=== PATIENT | female | born 1950 | race Caucasian/White ===

== ENCOUNTER 2017-04-24 13:56 | Observation (INO) | payer OTHER ==
[~2017-04-24] VITALS: Ht 157.5 cm; Wt 124.3 kg
[~2017-04-24 13:56] MED LIST: AMLODIPINE BESY10 MG PO; ASPIR 8181 MG PO; Aspirin PO; Furosemide PO; HYDROCHLOROTHIA25 MG PO; LABETALOL HCL200 MG PO; LISINOPRIL10 MG PO; PEPCID20 MG PO
[2017-04-24 14:25] LABS: BASOPHILS # (AUTO) 0.1 (0.0-0.1); BASOPHILS % 0.7 % (0.0-1.0); EOSINOPHILS # (AUTO) 0.2 (0.0-0.4); EOSINOPHILS % 2.2 % (0.0-6.0); HEMATOCRIT 35.8 % (34.2-44.1); HEMOGLOBIN 11.8 g/dL (12.0-16.0); LYMPHOCYTES # (AUTO) 3.1 (1.0-3.2); LYMPHOCYTES % 42.9 % (18.0-39.1); MEAN CORPUSCULAR HEMOGLOBIN 29.1 pg (28-32); MEAN CORPUSCULAR VOLUME 88.4 fL (81-99); MONOCYTES # (AUTO) 0.5 (0.2-0.8); MONOCYTES % 6.4 % (4.4-11.3); NEUTROPHILS # (AUTO) 3.4 (2.1-6.9); NEUTROPHILS % 47.5 % (38.7-80.0); PLATELET COUNT 343 x10e3/uL (140-360); RED BLOOD COUNT 4.05 x10e6/uL (3.6-5.1); RED CELL DISTRIBUTION WIDTH 13.8 % (11.7-14.4)
[2017-04-24 14:35] LABS: INR 0.99; PROTHROMBIN TIME 12.3 seconds (11.9-14.5)
[2017-04-24 14:36] LABS: PARTIAL THROMBOPLASTIN TIME 29.1 seconds (23.8-35.5)
[2017-04-24 14:43] LABS: ALANINE AMINOTRANSFERASE 10 IU/L (0-55); ALBUMIN 3.7 g/dL (3.5-5.0); ALBUMIN/GLOBULIN RATIO 0.9 (0.8-2.0); ALKALINE PHOSPHATASE 60 IU/L (40-150); ANION GAP 18.2 mmol/L (8-16); BLOOD UREA NITROGEN 21 mg/dL (7-26); BUN/CREATININE RATIO 26 (6-25); CALCIUM 9.7 mg/dL (8.4-10.2); CARBON DIOXIDE 25 mmol/L (22-29); CHLORIDE 104 mmol/L (98-107); CREATINE KINASE 35 IU/L (29-168); CREATININE, SERUM 0.81 mg/dL (0.57-1.11); EST GLOMERULAR FILTRATION RATE > 60 ML/MIN (60-); GLUCOSE 155 mg/dL (74-118); POTASSIUM 4.2 mmol/L (3.5-5.1); SODIUM 143 mmol/L (136-145)
--- NOTE | 2017-04-24 14:53 | Diagnostic Imaging Report ---
EXAMINATION: CHEST SINGLE (PORTABLE) INDICATION: \S\CP \S.br\ COMPARISON: 03/18/2015 FINDINGS: AP view TUBES and LINES: None. LUNGS: Limited by body habitus. Patient's chin obscures lung apices. Pulmonary vascular congestion and mild interstitial edema. PLEURA: No significant pleural effusion or pneumothorax. HEART AND MEDIASTINUM: The cardiomediastinal silhouette is enlarged. BONES AND SOFT TISSUES: No acute osseous lesion. Soft tissues are unremarkable. UPPER ABDOMEN: No free air under the diaphragm. IMPRESSION: Enlarged cardiomediastinal silhouette, pulmonary vascular congestion, and mild interstitial edema, unchanged from prior exam. Signed by: Dr. Chris Rodriguez MD on 04/24/2017 2:50 PM
[2017-04-24] MEDS ORDERED: ONDANSETRON HCL INJ 2 MG/ML VIAL IV PRN (15:30)
[2017-04-24] MEDS ORDERED: MORPHINE SULFATE 2 MG/ML SYR IV PRN (15:30)
[2017-04-24] MEDS ORDERED: NITROGLYCERIN 0.4 MG SUBL SL PRN (15:30)
[2017-04-24] MEDS ORDERED: FAMOTIDINE 20 MG TAB PO SCH (15:30)
[2017-04-24] MEDS ORDERED: SODIUM CHLORIDE FLUSH 10 ML SYR INJ PRN (15:30)
[2017-04-24] MEDS: FUROSEMIDE INJ 10 MG/ML 2 ML VIAL IV SCH (15:37)
[2017-04-24] MEDS: NITROGLYCERIN 2% OINT 1 GM PKT TOP SCH ×2 (15:37→21:38)
--- OUTSIDE RECORDS SUMMARY | 2017-04-24 18:36 | XMS REPORT ---
Author Author [facility] Address Unknown Phone Unavailable Care Team Providers Care Stencil Printer Name Role Phone SULAIMAN BENAVIDES Unavailable Unavailable Problems This patient has no known problems. Allergies, Adverse Reactions, Alerts This patient has no known allergies or adverse reactions. Medications This patient has no known medications. Results Test Description Test Time Test Comments Text Results Atomic Results Result Comments CHEST SINGLE (PORTABLE) [place] [address] Patient Name: ELADIO ROGERS MR #: [id number] : 1950 Age/Sex: 67/F Req #: [id number] Adm Physician: Ordered by: SULAIMAN BENAVIDES MD Report #: [id number] Location: ER Room/Bed: Procedure: [id number] DX/CHEST SINGLE (PORTABLE) Exam Date: 04/24/17 Exam Time: 1425 REPORT STATUS: Signed EXAMINATION: CHEST SINGLE (PORTABLE) INDICATION: COMPARISON: 2015 FINDINGS: AP view TUBES and LINES: None. LUNGS: Limited by body habitus. Patient's chin obscures lung apices. Pulmonary vascular congestion and mild interstitial edema. PLEURA: No significant pleural effusion or pneumothorax. HEART AND MEDIASTINUM: The cardiomediastinal silhouette is enlarged. BONES AND SOFT TISSUES: No acute osseous lesion. Soft tissues are unremarkable. UPPER ABDOMEN: No free air under the diaphragm. IMPRESSION: Enlarged cardiomediastinal silhouette, pulmonary vascular congestion, and mild interstitial edema, unchanged from prior exam. Signed by: Dr. Chris Jones MD on 04/24/2017 2:50 PM Dictated By: CHRIS JONES MD 48 Transcribed By: MARTY on 04/24/171449 COPY TO: SULAIMAN BENAVIDES MD
[2017-04-24 20:00] VITALS: BP 164/74
[2017-04-24 20:09] VITALS: BP 188/89
[2017-04-24 20:12] VITALS: BP 164/77
[2017-04-24 20:21] VITALS: BP 164/77
[2017-04-24] MEDS ORDERED: HYDRALAZINE HCL 20 MG/ML VIAL IV PRN (20:30)
[2017-04-24] MEDS ORDERED: LABETALOL HCL 200 MG TAB PO SCH (21:00)
[2017-04-24] MEDS ORDERED: LISINOPRIL 10 MG TAB PO SCH (21:00)
[2017-04-24] MEDS ORDERED: ASPIRIN 81 MG PO SCH (21:00)
[2017-04-25 00:16] VITALS: BP 108/51
[2017-04-25 00:46] LABS: CREATINE KINASE 40 IU/L (29-168)
[2017-04-25 04:00] VITALS: BP 153/67
[2017-04-25] MEDS: NITROGLYCERIN 2% OINT 1 GM PKT TOP SCH (04:30)
[2017-04-25 06:11] LABS: BASOPHILS # (AUTO) 0.1 (0.0-0.1); BASOPHILS % 0.7 % (0.0-1.0); EOSINOPHILS # (AUTO) 0.2 (0.0-0.4); EOSINOPHILS % 2.1 % (0.0-6.0); HEMATOCRIT 31.8 % (34.2-44.1); HEMOGLOBIN 10.3 g/dL (12.0-16.0); LYMPHOCYTES # (AUTO) 3.3 (1.0-3.2); LYMPHOCYTES % 43.5 % (18.0-39.1); MEAN CORPUSCULAR HEMOGLOBIN 28.6 pg (28-32); MEAN CORPUSCULAR HGB CONC 32.4 g/dL (31-35); MEAN CORPUSCULAR VOLUME 88.3 fL (81-99); MONOCYTES # (AUTO) 0.5 (0.2-0.8); MONOCYTES % 6.8 % (4.4-11.3); NEUTROPHILS # (AUTO) 3.5 (2.1-6.9); NEUTROPHILS % 46.5 % (38.7-80.0); PLATELET COUNT 275 x10e3/uL (140-360); RED CELL DISTRIBUTION WIDTH 13.5 % (11.7-14.4)
[2017-04-25 06:32] LABS: ANION GAP 12.9 mmol/L (8-16); BLOOD UREA NITROGEN 23 mg/dL (7-26); BUN/CREATININE RATIO 30 (6-25); CALCIUM 9.1 mg/dL (8.4-10.2); CARBON DIOXIDE 29 mmol/L (22-29); CHLORIDE 104 mmol/L (98-107); CHOL/HDL RATIO 4.3 (3.0-3.6); CHOLESTEROL 164 MD/DL (0-199); CREATININE, SERUM 0.77 mg/dL (0.57-1.11); EST GLOMERULAR FILTRATION RATE > 60 ML/MIN (60-); GLUCOSE 95 mg/dL (74-118); HDL CHOLESTEROL 38 MG/DL (40-60); LDL CHOLESTEROL 97 MG/DL (60-130); POTASSIUM 3.9 mmol/L (3.5-5.1); SODIUM 142 mmol/L (136-145); TRIGLYCERIDES 145 MG/DL (0-149)
[2017-04-25 06:47] LABS: CREATINE KINASE 34 IU/L (29-168)
[2017-04-25 07:57] VITALS: BP 153/67
[2017-04-25 08:00] VITALS: BP 197/91
[2017-04-25] MEDS: FUROSEMIDE INJ 10 MG/ML 2 ML VIAL IV SCH (08:05)
[2017-04-25] MEDS ORDERED: ASPIRIN 81 MG ENTERIC COATED PO SCH (09:00)
[2017-04-25] MEDS ORDERED: FAMOTIDINE 20 MG TAB PO SCH (09:00)
[2017-04-25] MEDS ORDERED: LABETALOL HCL 100 MG TAB PO SCH (09:00)
[2017-04-25 12:00] VITALS: BP 144/66
--- NOTE | 2017-04-25 12:35 | Discharge Summary ---
PRIMARY CARE DOCTOR: Dr. Enriqueta Peña FINAL DIAGNOSIS: Chest discomfort. SECONDARY DIAGNOSES 1. Uncontrolled hypertension. 2. Morbid obesity. BETTING CLERKS: None. PROCEDURES/STUDIES PERFORMED: None. HISTORY: Per [facility] HOSPITAL COURSE: The patient was admitted for 25-minute substernal chest discomfort. Since then, she has been chest pain-free. In fact, she has not had any chest discomfort for the last 2 years. She was admitted here for chest pain and had an unremarkable stress test at that time. Potentially, it might be an inaccurate reading; however, her blood pressure is anywhere from 108 systolic to 197 systolic. Upon repeat after her medicines, her systolic is in the 140s now. The patient is deemed stable for discharge, given the fact that she clinically looks well, and she is already plugged in with the veterinary technician, Dr. Borja. The patient will follow up with him. The patient will also start checking her blood pressure at home. She does have a machine at home. I have also updated her primary care doctor. The patient was seen and examined today. CONDITION ON DISCHARGE: Stable. DISCHARGE MEDICATIONS: Please see medication reconciliation form. NEETU MCDONALD M.D. Job#: [id number] cc:ENRIQUETA PEÑA MD
== END 2017-04-25 13:00 | disposition home or self-care (01) ==
LOC: ER 13:56 → EDBEDREQ 15:34 → ERHOLD 18:32 → IMCU 18:36
PROVIDERS: ADMIT Internal Medicine; ATTEND Internal Medicine
DX: R07.89 Other chest pain (principal); I11.0 Hypertensive heart disease with heart failure; I50.9 Heart failure, unspecified; E66.01 Morbid (severe) obesity due to excess calories; Z68.43 Body mass index [BMI] 50.0-59.9, adult
CPT/HCPCS: 36415; 71045; 80048; 80053; 80061; 82550; 82553; 83880; 84484; 85025; 85610; 85730; 93005; 99284; G0378; J1940

== ENCOUNTER 2019-07-21 21:03 | Emergency (ER) | payer MEDICARE, OTHER ==
[~2019-07-21] VITALS: Ht 154.9 cm; Wt 112.9 kg
--- OUTSIDE RECORDS SUMMARY | 2019-07-21 21:08 | XMS REPORT | Clinical Summary ---
Author Author [facility] Organization [facility] Address Unknown Phone Unavailable Care Team Providers Care Wastewater Treatment Plant Attendant Name Role Phone PCP Unavailable Allergies Comments Active Allergy Reactions Severity Noted Date Fluoxetine 05/08/2013 Medications End Date Status Medication Sig Dispensed Refills Start Date Active aspirin EC (ECOTRIN) 325 Take 325 mg 0 mg enteric coated tablet by mouth daily. Active docusate sodium (COLACE) Take 100 mg 0 100 mg capsule by mouth 2 times daily. Active VITAMIN B COMPLEX (B Take 1 tablet 0 COMPLEX-VITAMIN B12 OR) by mouth daily. Active FOLIC ACID/MV,FE,OTHER Take 1 tablet 0 MIN (CENTRUM OR) by mouth daily. Active labetalol (NORMODYNE) 300 Take 1 tablet 180 tablet 3 06/14/201 mg tabletIndications: HTN by mouth 2 4 (hypertension) times daily. Active lisinopril (PRINIVIL, Take 1 tablet 90 tablet 3 ZESTRIL) 20 mg by mouth 4 tabletIndications: HTN daily. (hypertension) Active clobetasol (TEMOVATE) Apply to 50 mL 0 04/ 0/201 0.05 % external affected area 4 solutionIndications: 2 times Psoriasis of scalp daily. Active clobetasol (TEMOVATE) Apply to 60 g 3 /0 7 0.05 % affected area 4 ointmentIndications: 2 times Psoriasis daily. Active amLODIPine (NORVASC) 10 Take 1 tablet 90 tablet 3 01/02/201 mg tabletIndications: HTN by mouth 4 (hypertension) daily. Active Problems Problem Noted Date Liver masses 07/25/2013 Overview: 07/26/13 - received request for MRI Abd omen from Dr. Kadeem Whitehead. Request is denied for outsourcing of MR [place] due to patient being 100% self-pay status. Patient is open to have MRI don e @ facility of choice (any facility with an open machine & table large enou gh to accommodate); however, must pay or make some arrangements with the facility. Case Management is not warranted @ this time. In basket note t o Dr. Kadeem Whitehead done. Latasha Rucker, RN # [id number] 11/22/13 - received request for MRI Abd omen (Liver Protocol) from Dr. Kadeem Whitehead. Request is denied for outsourcing of MRI due to patient being 100% self-pay status. Patient is open to have MRI done @ facility of choice (any facility with an open machi ne & table large enough to accommodate); however, must pay or make some arrangements with any facility. In basket note to Dr. Kadeem Whitehead done. Latasha Rucker, RN # [id number] 07/25/2013-order from Dr. Kadeem ibarra for MRI of the Abdomen with and without contrast related to Hepatic Les ions on this Medicare eligible now; spoke to patient and per patient she pond s switched MD to [facility] Cue[facility] and that she had abdominal CT scan last Feb; per patient no diagnostic test is needed at the moment per her PCP lindsey Cuevas; micah BENAVIDES. Lexie Lumapas Adrenal nodule 07/25/2013 HTN (hypertension) 05/08/2013 Abdominal hernia 05/08/2013 Immunizations Name Administration Dates Next Due Tdap Tetanus, diphtheria, 05/08/2013 acellular pertussis Vaccine Family History Medical History Relation Name Comments Cancer Father prostate Hypertension Father Heart Maternal Grandfather Arthritis Mother Hypertension Mother Hypothyroid Sister Relation Name Status Comments Brother Alive Father (Age 70+) Maternal Grandfather Mother Alive Sister Alive 2 sisters Sister Social History Date Tobacco Use Types Packs/Day Years Used Former Smoker Smokeless Tobacco: Never Used Tobacco Cessation: Counseling Given: No Comments: 33 yrs ago Drinks/Week oz/Week Comments Alcohol Use No Sex Assigned at Date Recorded Not on file Industry Job Start Date Occupation Not on file Not on file Not on file Travel End Travel History Travel Start No recent travel history available. Last Filed Vital Signs Not on file Plan of Treatment Health Maintenance Due Date Last Done Comments IMM Pneumococcal Age 64 2014 and Up Breast Cancer Scrn 07/12/2014 07/12/2013 (Yearly) Colonoscopy 5yr 07/07/2018 07/07/2013 Results Not on fileafter 07/20/2018 Insurance Type Payer Benefit Subscriber ID Effective Phone Address Plan / Dates Group MEDICARE MEDICARE xxxxxxxxxx 2013- [phone] [address] Present [id number] [place] [address]
--- OUTSIDE RECORDS SUMMARY | 2019-07-21 21:08 | XMS REPORT | Continuity of Care Document ---
Author Author [facility] t Organization [facility] Address [address] [place] [address] Phone Unavailable Care Team Providers Care Advertising Sales Executive Name Role Phone NONSTAFF PCP Unavailable Jm BENAVIDES Unavailable Payers Payer Name Policy Type Policy Number Effective Date Expiration Date Odilon Palencia [id number] 2017 00:00:00 [facility] Problems Condition Name Condition Details Condition Category Status Onset Date Resolution Date Last Treatment Date Treating Clinician Comments Source CHF (congestive heart failure) CHF (congestive heart failure) Probl em Active 2015-03-17 00:00:00 [facility] Chest pain Chest pain Problem Active 2015-03-17 00:00:00 [facility] Sleep apnea Sleep apnea Problem Active 2015-03-17 00:00:00 [facility] Liver masses Liver masses Disease Active 2013-07-25 00:00:00 Overview: 07/26/13 - received request for MRI Abdomen from Dr. Kadeem Whitehead. Request is denied for outsourcing of MRI due to patient being 100% self-pay status. Patient is open to have MRI done @ facility of choice (any facility with an open machine & table large enough to accommodate); however, must pay or make some arrangements with the facility. Case Management is not warranted @ this time. In basket note to Dr. Kadeem Whitehead done.Latasha Rucker, RN # [id number]/09/28 - received request for MRI Abdomen (Liver Protocol) from Dr. Kadeem Whitehead. Request is denied for outsourcing of MRI due to patient being 100% self-pay status. Patient is open to have MRI done @ facility of choice (any facility with an open machine & table large enough to accommodate); however, must pay or make some arrangements with any facility. In basket note to Dr. Kadeem Whitehead done.Latasha Rucker, RN # [id number]/11/2013-order from Dr. Kadeem Whitehead for MRI of the Abdomen with and without contrast related to Hepatic Lesions on this Medicare eligible now; spoke to patient and per patient she has switched MD to [facility] and that she had abdominal CT scan last February; per patient no diagnostic test is needed at the moment per her PCP from [facility]; micah BENAVIDES.Lexie Saha [facility] Adrenal nodule Adrenal nodule Disease Active 2013-07-25 00:00:00 [facility] HTN (hypertension) HTN (hypertension) Disease Active 2013-05-08 00:00:0 0 [facility] Abdominal hernia Abdominal hernia Disease Active 2013-05-08 00:00:00 [facility] Allergies, Adverse Reactions, Alerts Allergy Name Allergy Type Status Severity Reaction(s) Onset Date Inacti ve Date Treating Clinician Comments Source Tfowkxe-Jhb-Meq Reductase Inhibitor Allergy to Substance Active Moderate LEG PAINS 2015-03-17 00:00:00 [facility] Fluoxetine Allergy to Substance Active Moderate SOB 2015-03-17 00:00:0 0 [facility] Fluoxetine Propensity to adverse reactions to drug Active 2013-05-08 00:00:00 [facility] Family History Family Member Diagnosis Comments Start Date Stop Date Source Natural father Cancer [facility] Natural father Hypertension [facility] Maternal grandfather [facility] Natural mother Arthritis [facility] Natural mother Hypertension [facility] Natural sister Hypothyroid [facility] Social History Social Habit Start Date Stop Date Quantity Comments Source Sex Assigned At [facility] Alcohol intake 2013-11-21 00:00:00 2013-11-21 00:00:00 [facility] Tobacco Comment 2013-05-08 00:00:00 2013-05-08 00:00:00 33 yrs ago [facility] Smoking Status Start Date Stop Date Source Former smoker 2013-11-21 00:00:00 2013-11-21 00:00:00 [facility] Medications Ordered Medication Name Filled Medication Name Start Date Stop Da te Current Medication? Ordering Clinician Indication Dosage Frequency Signature (SIG) Comments Components Source Aspirin 81 Mg Tabec Aspirin 81 Mg Tabec 2015-03-20 00:00:00 Yes Andrew Henson Investigation Specialist [address] [facility] Famotidine (Pepcid) 20 Mg Tablet, 20 Mg Oral Famotidin e (Pepcid) 20 Mg Tablet, 20 Mg Oral 2015-03-20 00:00:00 2017-04-24 00:00:00 No Andrew Henson Investigation Specialist [address] [facility] Furosemide 10 Mg/Ml Vial Furosemide 10 Mg/Ml Vial 2015-03-20 00: 00:00 2015-04-19 00:00:00 No Andrew Henson Investigation Specialist 40 Daily [facility] amLODIPine (NORVASC) 10 mg tablet 2014-01-02 00:00:00 Yes HTN (hypertension) 10mg QD Take 1 tablet by mouth daily. [facility] clobetasol (TEMOVATE) 0.05 % ointment 2013-11-21 00:00:00 Yes Psoriasis Q.5D Apply to affected area 2 times daily. [facility] aspirin EC (ECOTRIN) 325 mg enteric coated tablet 2013-07-07 10:38:06 Yes 325mg QD Take 325 mg by mouth daily. [facility] docusate sodium (COLACE) 100 mg capsule 2013-07-07 10:38:06 Yes 100mg Q.5D Take 100 mg by mouth 2 times daily. [facility] VITAMIN B COMPLEX (B COMPLEX-VITAMIN B12 OR) 2013-07-07 10:38:06 Yes 1{tbl} QD Take 1 tablet by mouth daily. [facility] FOLIC ACID/MV,FE,OTHER MIN (CENTRUM OR) 2013-07-07 10:38:06 Yes 1{tbl} QD Take 1 tablet by mouth daily. [facility] labetalol (NORMODYNE) 300 mg tablet 2013-06-14 00:00:00 Yes HTN (hypertension) 300mg Q.5D Take 1 tablet by mouth 2 times daily. [facility] lisinopril (PRINIVIL, ZESTRIL) 20 mg tablet 2013-06-14 00:00 :00 Yes HTN (hypertension) 20mg QD Take 1 tablet by mouth daily. [facility] clobetasol (TEMOVATE) 0.05 % external solution 2013-06-14 00 :00:00 Yes Psoriasis of scalp Q.5D Apply to affected area 2 times daily. [facility] Labetalol Hcl 200 Mg Tablet Labetalol Hcl 200 Mg Tablet Yes [address] [facility] Lisinopril 10 Mg Tablet Lisinopril 10 Mg Tablet Yes 10 Daily [facility] Amlodipine Besylate 10 Mg Tablet, 10 Mg Oral Amlodipin e Besylate 10 Mg Tablet, 10 Mg Oral 2017-04-24 00:00:00 No 10 Daily [facility] Hydrochlorothiazide 25 Mg Tablet, 25 Mg Oral Hydrochlo rothiazide 25 Mg Tablet, 25 Mg Oral 2017-04-24 00:00:00 No 25 Daily [facility] Aspirin (Aspir 81) 81 Mg Tablet., 325 Mg Oral Aspiri n (Aspir 81) 81 Mg Tablet., 325 Mg Oral 2015-03-20 00:00:00 No 325 D aily [facility] Immunizations Ordered Immunization Name Filled Immunization Name Date Status Comments Source Tdap Tetanus, diphtheria, acellular pertussis Vaccine 2013-05-08 00:00:00 Completed [facility] Procedures This patient has no known procedures. Plan of Care Planned Activity Planned Date Details Comments Source Future Scheduled Test 2018-07-07 00:00:00 Colonoscopy 5yr [c ode = Colonoscopy 5yr] [facility] Scheduled Test 2014-07-12 00:00:00 Breast Cancer Scrn (Yearly) [code = Breast Cancer Scrn (Yearly)] [facility] Scheduled Test 2014 00:00:00 IMM Pneumococcal A ge 65 and Up [code = IMM Pneumococcal Age 65 and Up] [facility] Encounters Start Date/Time End Date/Time Encounter Type Admission Type [facility] Care Department Encounter ID Source 2017-04-24 18:32:00 2017-04-25 13:00:00 Discharged Inpatient (obs) [facility] [id number] [facility] Results Test Description Test Time Test Comments Results Result Comments Source Creatine Kinase MB 2017-04-25 06:57:00 Test Item Creatine Kinase MB (test code = 94851-9) 0.70 0-5.0 [facility]Troponin [id number] 06:57:00* Test Item Value Reference Range Interpretation Comments Troponin I (test code = QHY5086) -0.001 0-0.300 [facility]Creatine Kjbtcd8363-85-06 06:51:00* Test Item Value Reference Range Interpretation Comments Creatine Kinase (test code = 2157-6) 34 29-168 [facility] Grewz5968-65-49 06:39:00* Test Item Value Reference Range Interpretation Comments Sodium Level (test code = 2951-2) 142 136-145 [facility]Potassium Tzflg8168-27-56 06:39:00* Test Item Value Reference Range Interpretation Comments Potassium Level (test code = 2823-3) 3.9 3.5-5.1 [facility] CampusChloride Zckvc2858-33-99 06:39:00* Test Item Value Reference Range Interpretation Comments Chloride Level (test code = 2075-0) 104 98-107 [facility] CampusCarbon Dioxide Qnowx1953-05-54 06:39:00* Test Item Value Reference Range Interpretation Comments Carbon Dioxide Level (test code = 2028-9) 29 22-29 [facility] CampusAnion Jfr1222-00-05 06:39:00* Test Item Value Reference Range Interpretation Comments Anion Gap (test code = 12750-8) 12.9 8-16 [facility] CampusBlood Urea Yvsbpuhv7410-75-18 06:39:00* Test Item Value Reference Range Interpretation Comments Blood Urea Nitrogen (test code = 3094-0) 23 7-26 [facility] CampusCreatinine2018-03-11 06:39:00* Test Item Value Reference Range Interpretation Comments Creatinine (test code = 2160-0) 0.77 0.57-1.11 [facility] CampusBUN/Creatinine Aufat1261-68-19 06:39:00* Test Item Value Reference Range Interpretation Comments BUN/Creatinine Ratio (test code = 3097-3) 30 6-25 H [facility] CampusEstimat Glomerular Filtration Rate 2017-04-25 06:39:00* Test Item Value Reference Range Interpretation Comments Estimat Glomerular Filtration Rate (test code = 84128-1) 60- >60 Ranges were taken from the National Kidney Disease Education Program and the [facility] literature.Reference ranges:60 or greater: Hmphef20-58 ( for 3 consecutive months): Chronic kidney disease 15 or less: Kidney failureThe [facility] of [facility] CampusGlucose Gaepa0385-39-01 06:39:00* Test Item Value Reference Range Interpretation Comments Glucose Level (test code = DFQ0549) 95 74-118 [facility] CampusCalcium Tgnaa9005-52-97 06:39:00* Test Item Value Reference Range Interpretation Comments Calcium Level (test code = 85628-4) 9.1 8.4-10.2 [facility] CampusTriglycerides Egowk3776-86-56 06:39:00* Test Item Value Reference Range Interpretation Comments Triglycerides Level (test code = 2571-8) 145 0-149 [facility] CampusCholesterol Ohzmi8903-22-05 06:39:00* Test Item Value Reference Range Interpretation Comments Cholesterol Level (test code = 2093-3) 164 0-199 Less than 200 mg/dL Low Ufob693 - 239 mg/dL Borderline Uifg051 m g/dl and greater High Risk [facility] CampusLDL Hujngncdopv9961-28-56 06:39:00* Test Item Value Reference Range Interpretation Comments LDL Cholesterol (test code = 2089-1) 97 60-130 [facility] CampusHDL Pmqfovkwfst6301-56-34 06:39:00* Test Item Value Reference Range Interpretation Comments HDL Cholesterol (test code = 2085-9) 38 40-60 L [facility] CampusCholesterol/HDL Pfcch0652-87-12 06:39:00 * Test Item Value Reference Range Interpretation Comments Cholesterol/HDL Ratio (test code = 9830-1) 4.3 3.0-3.6 H [facility] CampusWhite Blood Lujrx9097-20-49 06:14:00* Test Item Value Reference Range Interpretation Comments White Blood Count (test code = 6690-2) 7.47 4.8-10.8 [facility] CampusRed Blood Cvmdv1354-37-09 06:14:00* Test Item Value Reference Range Interpretation Comments Red Blood Count (test code = 789-8) 3.60 3.6-5.1 [facility] CampusHemoglobin2018-03-11 06:14:00* Test Item Value Reference Range Interpretation Comments Hemoglobin (test code = 53595-2) 10.3 12.0-16.0 L [facility] CampusHematocrit2018-03-11 06:14:00* Test Item Value Reference Range Interpretation Comments Hematocrit (test code = 4544-3) 31.8 34.2-44.1 L [facility] CampusMean Corpuscular Pcrogi4297-19-91 06:14:00* Test Item Value Reference Range Interpretation Comments Mean Corpuscular Volume (test code = 787-2) 88.3 81-99 [facility] CampusMean Corpuscular Iectkerrbb6014-48-47 06:14:00* Test Item Value Reference Range Interpretation Comments Mean Corpuscular Hemoglobin (test code = 785-6) 28.6 28-32 [facility] CampusMean Corpuscular Hemoglobin Concent 2017-04-25 06:14:00* Test Item Value Reference Range Interpretation Comments Mean Corpuscular Hemoglobin Concent (test code = 786-4) 32.4 31-35 [facility] CampusRed Cell Distribution Sthxp6949-27-08 06:14:00* Test Item Value Reference Range Interpretation Comments Red Cell Distribution Width (test code = 44286-6) 13.5 11.7 -14.4 [facility] CampusPlatelet Lykvf9170-29-53 06:14:00* Test Item Value Reference Range Interpretation Comments Platelet Count (test code = 777-3) 275 140-360 [facility] CampusNeutrophils (%) (Auto)2017-04-25 06:14:00 * Test Item Value Reference Range Interpretation Comments Neutrophils (%) (Auto) (test code = 54328-8) 46.5 38.7-80.0 [facility] CampusLymphocytes (%) (Auto)2017-04-25 06:14:00 * Test Item Value Reference Range Interpretation Comments Lymphocytes (%) (Auto) (test code = 736-9) 43.5 18.0-39.1 H [facility] CampusMonocytes (%) (Auto)2017-04-25 06:14:00* Test Item Value Reference Range Interpretation Comments Monocytes (%) (Auto) (test code = 5905-5) 6.8 4.4-11.3 [facility] CampusEosinophils (%) (Auto)2017-04-25 06:14:00 * Test Item Value Reference Range Interpretation Comments Eosinophils (%) (Auto) (test code = 713-8) 2.1 0.0-6.0 [facility] CampusBasophils (%) (Auto)2017-04-25 06:14:00* Test Item Value Reference Range Interpretation Comments Basophils (%) (Auto) (test code = 706-2) 0.7 0.0-1.0 [facility] CampusIM GRANULOCYTES %2017-04-25 06:14:00* Test Item Value Reference Range Interpretation Comments IM GRANULOCYTES % (test code = IM GRANULOCYTES %) 0.4 0.0- 1.0 [facility] CampusNeutrophils # (Auto)2017-04-25 06:14:00* Test Item Value Reference Range Interpretation Comments Neutrophils # (Auto) (test code = 751-8) 3.5 2.1-6.9 [facility] CampusLymphocytes # (Auto)2017-04-25 06:14:00* Test Item Value Reference Range Interpretation Comments Lymphocytes # (Auto) (test code = 69723-2) 3.3 1.0-3.2 H [facility] CampusMonocytes # (Auto)2017-04-25 06:14:00* Test Item Value Reference Range Interpretation Comments Monocytes # (Auto) (test code = 742-7) 0.5 0.2-0.8 [facility] CampusEosinophils # (Auto)2017-04-25 06:14:00* Test Item Value Reference Range Interpretation Comments Eosinophils # (Auto) (test code = 711-2) 0.2 0.0-0.4 [facility] CampusBasophils # (Auto)2017-04-25 06:14:00* Test Item Value Reference Range Interpretation Comments Basophils # (Auto) (test code = 704-7) 0.1 0.0-0.1 [facility] CampusAbsolute Immature Granulocyte (auto 2017-04-25 06:14:00* Test Item Value Reference Range Interpretation Comments Absolute Immature Granulocyte (auto (marcela t code = Absolute Immature Granulocyte (auto) 0.03 0-0.1 [facility] CampusB-Type Natriuretic Kckxhcs7865-16-54 14:49:00* Test Item Value Reference Range Interpretation Comments B-Type Natriuretic Peptide (test code = 82108-4) 52.8 0-100 [facility] CampusTotal Jovlarwoe4747-38-62 14:44:00* Test Item Value Reference Range Interpretation Comments Total Bilirubin (test code = 1975-2) -0.3 0.2-1.2 [facility] CampusAspartate Amino Transf (AST/SGOT) 2017-04-24 14:44:00* Test Item Value Reference Range Interpretation Comments Aspartate Amino Transf (AST/SGOT) (test code = Aspartate Amino Transf (AST/SGOT)) 15 5-34 [facility] CampusAlanine Aminotransferase (ALT/SGPT) 2017-04-24 14:44:00* Test Item Value Reference Range Interpretation Comments Alanine Aminotransferase (ALT/SGPT) (test code = 1742-6) 10 0-55 [facility] CampusTotal Nfbxiwn8863-88-53 14:44:00* Test Item Value Reference Range Interpretation Comments Total Protein (test code = 2885-2) 8.0 6.5-8.1 [facility] CampusAlbumin2018-03-10 14:44:00* Test Item Value Reference Range Interpretation Comments Albumin (test code = 1751-7) 3.7 3.5-5.0 [facility] CampusGlobulin2018-03-10 14:44:00* Test Item Value Reference Range Interpretation Comments Globulin (test code = 83685-5) 4.3 2.3-3.5 H [facility] CampusAlbumin/Globulin Aykmq6858-67-50 14:44:00 * Test Item Value Reference Range Interpretation Comments Albumin/Globulin Ratio (test code = 1759-0) 0.9 0.8-2.0 [facility] CampusAlkaline Flqgyadgugs4595-55-97 14:44:00* Test Item Value Reference Range Interpretation Comments Alkaline Phosphatase (test code = 6768-6) 60 40-150 [facility] CampusProthrombin Nctr5860-11-70 14:37:00* Test Item Value Reference Range Interpretation Comments Prothrombin Time (test code = 5902-2) 12.3 11.9-14.5 [facility] CampusProthromb Time International Ratio 2017-04-24 14:37:00* Test Item Value Reference Range Interpretation Comments Prothromb Time International Ratio (test code = 6301-6) 0.99 Oral Anticoagulant Therapy INR Values:1. Low Intensity Therapy 1.5 - 2.02 . Moderate Intensity Therapy 2.0 - 3.03. High Intensity Therapy(1) 2.5 - 3. 54. High Intensity Therapy(2) 3.0 - 4.05. Panic Value INR > 5.0 [facility] CampusActivated Partial Thromboplast Time 2017-04-24 14:37:00* Test Item Value Reference Range Interpretation Comments Activated Partial Thromboplast Time (test code = 35794-7) 29.1 23.8-35.5 [facility] CampusCHEST SINGLE (PORTABLE) [facility] [address] [place] [address] Patient Name: ELADIO ROGERS MR #: [id number] : 1950 Age/Sex: 67/F Req #: [id number] Adm Physician: Ordered by: SULAIMAN BENAVIDES MD Report #: [id number] Location: ER Room/Bed: Procedure: [id number] DX/CHEST SINGLE (PORTABLE) Exam Date: 04/24/17 Exam Time: 1425 REPORT STAT US: Signed EXAMINATION: CHEST SINGLE (PORTABLE) INDICATION: COMPARISON: 03/18/2015 FINDINGS: AP view TUBES and LINE S: None. LUNGS: Limited by body habitus. Patient's chin obscures lung apic es. Pulmonary vascular congestion and mild interstitial edema. PLEURA: No significant pleural effusion or pneumothorax. HEART AND MEDIAS TINUM: The cardiomediastinal silhouette is enlarged. BONES AND SOFT TI SSUES: No acute osseous lesion. Soft tissues are unremarkable. UPPER AB DOMEN: No free air under the diaphragm. IMPRESSION: Enlarged cardiom ediastinal silhouette, pulmonary vascular congestion, and mild interstitial ed vanessa, unchanged from prior exam. Signed by: Dr. Chris Jones MD on 04/24 2:50 PM Dictated By: CHRIS JONES MD [id number] Transcribed By: MARTY on 04/24/17 [id number] COPY TO: SULAIMAN BENAVIDES MD
--- OUTSIDE RECORDS SUMMARY | 2019-07-21 21:08 | XMS REPORT | Clinical Summary ---
Author Author JESSICA [facility] Address Unknown Phone Unavailable Care Team Providers Care Painter [employer] Name Role Phone PCP Unavailable Allergies No Known Allergies Medications Not on file Active Problems Not on file Social History Date Tobacco Use Types Packs/Day Years Used Never Assessed Sex Assigned at Date Recorded Not on file Industry Job Start Date Occupation Not on file Not on file Not on file Travel End Travel History Travel Start No recent travel history available. Last Filed Vital Signs Not on file Plan of Treatment Not on file Results Not on fileafter 07/20/2018 Insurance Payer Benefit Subscriber ID Type Phone Address Plan / Group [employer] [facility] [place] [phone]
[2019-07-21] MEDS ORDERED: BENZOCAINE 20% SPR 60 ML CAN ONE (21:23)
[2019-07-21] MEDS ORDERED: BENZOCAINE 20% SPR 60 ML CAN MT STA (21:24)
--- NOTE | 2019-07-21 21:30 | NUR ---
MD APPLIED HURRICANE SPRAY TO NARE THEN RHINO ROCKET. PT TOLERATED WELL.
--- NOTE | 2019-07-21 21:32 | Emergency Department Note ---
History of Present Illnes History of Present Illness History of Present Illness This is a 69 year old female c/o right sided epistaxis for 45 minutes .spontaneous Historian: Patient Arrival Mode: Car Additional Treatment HELMET HAT SWEATBAND PUNCHER: none Onset (how long ago): minute(s) (45 minutes) Severity: moderate Onset quality: sudden Timing of current episode: constant Progression: improving Chronicity: recurrent Relieving factors: none Exacerbating factors: none Associated symptoms: denies other symptoms Treatments prior to arrival: none Past Medical/Family History Physician Review I have reviewed the patient's past medical and family history. Any updates have been documented here. Past Medical History Recent Fever: No Clinical Suspicion of Infectio: No New/Unexplained Change in Ment: No Past Medical History: Hypertension, CHF Other Medical History: VENTRAL HERNIA sleep apnea ANXIETY Other Surgery: C SECTION PYLENOIDAL CYST Social History Smoking Cessation: Never Smoker Alcohol Use: None Any Illegal Drug Use: No TB Exposure/Symptoms: No Physically hurt or threatened: No Other Last Tetanus: UNKNOWN Any Pre-Existing Lines (PICC,: No Is patient up to date on immun: No Review of Systems Review of Systems Constitutional: no symptoms EENTM: no symptoms Cardiovascular: no symptoms Respiratory: no symptoms Gastrointestinal: no symptoms Genitourinary: no symptoms Musculoskeletal: no symptoms (dednies any dizziness while standing) Neurological: no symptoms Psychological: anxiety Endocrine: no symptoms Review of other systems All other systems reviewed and negative. Physical Exam Related Data Allergies: Coded Allergies: [id number] Reductase Inhibitor (Verified Allergy, Intermediate, LEG PAINS, 03/17/15) fluoxetine (Verified Allergy, Intermediate, SOB, 03/17/15) Triage Vital Signs elevated BP will recheck Vital signs reviewed: Yes Physical Exam CONSTITUTIONAL Constitutional: well-developed, well-nourished, obese HENT HENT: normocephalic, atraumatic, other (there is a scant amount of bleeding from the right nostril the left appears clear also some blood is noted in the pharynx) EYES Eyes: PERRL, conjunctivae normal, EOM normal, lids normal NECK Neck: ROM normal, supple PULMONARY Pulmonary: effort normal, breath sounds normal CARDIOVASCULAR Cardiovascular: regular rhythm, heart sounds normal, intact distal pulses, capillary refill normal, normal rate GASTROINTESTINAL Abdominal: soft, nontender GENITOURINARY Genitourinary: exam deferred SKIN Skin: warm, dry MUSCULOSKELETAL Musculoskeletal: ROM normal NEUROLOGICAL Neurological: alert, oriented x 3, DTRs normal, no gross motor or sensory deficits PSYCHOLOGICAL Psychological: mood/affect normal, behavior normal, thought content normal, judgement normal Results Laboratory Laboratory CBC shows a mild anemia with hemoglobin 11 and hematocrit of 35 prothrombin time 11.2 with an INR 0.9 normal limits Lab results reviewed: Yes Procedures Epistaxis Control Time out performed: Yes Nostril: right Nose prepped with: other (benzocaine 20%) Direct inspection: anterior source identified Inspection method: otoscope Epistaxis treatment: nasal tampon Results of treatment: bleeding controlled, treatment well tolerated Complications: none Critical Care Time Subsequent provider I assumed direction of critical care for this patient from another provider of my specialty. Assessment & Plan Reassessment Reassessment time: 21:55 Reassessment Was reexamined and the bleeding is controlled plan is to discharge the patient nasal packing and amoxicillin Assessment & Plan Final Impression: (1) EPISTAXIS Assessment & Plan Repeat blood pressure 174/70 patient to be discharged home to return for any other concerns Depart Disposition: HOME, SELF-[facility] Meds Active Scripts Amoxicillin (AMOXICILLIN) 250 Mg Capsule, 500 MG PO TID for nasal packing, #15 CAP 0 Refills Prov:SULAIMAN OCASIO MD 07/21/19 [Furosemide] 10 MG/ML VIAL No Conflict Check, 40 MG PO DAILY for 30 Days Prov:ELMA JACKSON NP 03/20/15 [Aspirin] 81 MG TABEC No Conflict Check, 81 MG PO QAM Prov:ELMA JACKSON NP 03/20/15 Reported Medications Lisinopril (LISINOPRIL) 10 Mg Tablet, 10 MG PO DAILY, #30 TAB 03/17/15 Labetalol Hcl (LABETALOL HCL) 200 Mg Tablet, 300 MG PO BID, #60 TAB 03/17/15 Medications in the ED Benzocaine 60 ml STK-MED ONCE .ROUTE ; Start 07/21/19 at 21:23; Stop 07/21/19 at 21:20; Status DC SULAIMAN OCASIO MD Jul 21, 2019 21:32
[2019-07-21] MEDS ORDERED: AMOXICILLIN250 MG PO (21:57)
[2019-07-21 22:11] VITALS: BP 174/70
== END 2019-07-21 22:05 | disposition home or self-care (01) ==
LOC: FSED 21:03
DX: R04.0 Epistaxis (principal); I10 Essential (primary) hypertension; I50.9 Heart failure, unspecified; F41.9 Anxiety disorder, unspecified
CPT/HCPCS: 85025; 85610; 99283

== ENCOUNTER 2024-03-12 17:39 | Emergency (ER) | payer MEDICARE ==
[~2024-03-12] VITALS: Ht 157.5 cm; Wt 94.3 kg
[~2024-03-12 17:39] MED LIST changes: +AMOXICILLIN250 MG PO
[2024-03-12 18:04] VITALS: PULSE 85; RESP 17; TEMP 98.4
[2024-03-12 19:10] LABS: EOSINOPHILS # (AUTO) 0.1 (0.0-0.4); EOSINOPHILS % 2.2 % (0.0-6.0); HEMATOCRIT 36.9 % (34.2-44.1); HEMOGLOBIN 11.4 g/dL (12.0-16.0); LYMPHOCYTES # (AUTO) 1.5 (1.0-3.2); LYMPHOCYTES % 35.5 % (18.0-39.1); MEAN CORPUSCULAR HEMOGLOBIN 29.9 pg (28-32); MEAN CORPUSCULAR HGB CONC 30.9 g/dL (31-35); MEAN CORPUSCULAR VOLUME 96.9 fL (81-99); MONOCYTES # (AUTO) 0.5 (0.2-0.8); MONOCYTES % 11.5 % (4.4-11.3); NEUTROPHILS % 49.8 % (38.7-80.0); PLATELET COUNT 248 x10e3/uL (140-360); RED BLOOD COUNT 3.81 x10e6/uL (3.6-5.1); RED CELL DISTRIBUTION WIDTH 12.7 % (11.7-14.4); WHITE BLOOD COUNT 4.08 x10e3/uL (4.8-10.8)
[2024-03-12 19:31] LABS: ALBUMIN 3.7 g/dL (3.5-5.0); ALBUMIN/GLOBULIN RATIO 1.3 (0.8-2.0); ANION GAP 14.3 mmol/L (8-16); BILIRUBIN,TOTAL 0.5 mg/dL (0.2-1.2); CALCIUM 9.3 mg/dL (8.4-10.2); CREATININE, SERUM 0.62 mg/dL (0.57-1.11); POTASSIUM 4.3 mmol/L (3.5-5.1); TOTAL PROTEIN 6.6 g/dL (6.5-8.1)
[2024-03-12] MEDS: AMLODIPINE BESYLATE 5 MG TAB PO ONE (20:16)
[2024-03-12 20:59] VITALS: BP 180/74; O2SAT 99
== END 2024-03-12 21:00 | disposition home or self-care (01) ==
LOC: ER 18:44
DX: I10 Essential (primary) hypertension (principal); I50.9 Heart failure, unspecified; G47.30 Sleep apnea, unspecified; F41.9 Anxiety disorder, unspecified
CPT/HCPCS: 36415; 71045; 80053; 83880; 84484; 85025; 93005; 99283

== ENCOUNTER 2024-05-21 05:07 | Emergency (ER) | payer MEDICARE ==
[~2024-05-21] VITALS: Ht 157.5 cm; Wt 94.3 kg
[2024-05-21 05:11] VITALS: PULSE 79; RESP 20; TEMP 98
[2024-05-21 05:39] LABS: CORONAVIRUS COVID-19 AG NEGATIVE (NEGATIVE); INFLUENZA A AG NEGATIVE (NEGATIVE); INFLUENZA B AG NEGATIVE (NEGATIVE)
[2024-05-21 06:01] VITALS: BP 158/74; PULSE 81; RESP 19; TEMP 98.1; O2SAT 96
== END 2024-05-21 06:00 | disposition home or self-care (01) ==
LOC: ER 05:16
DX: R05.9 Cough, unspecified (principal); J30.9 Allergic rhinitis, unspecified; I10 Essential (primary) hypertension; I50.9 Heart failure, unspecified; G47.30 Sleep apnea, unspecified; F41.9 Anxiety disorder, unspecified; Z11.52 Encounter for screening for COVID-19
CPT/HCPCS: 71045; 99283

== ENCOUNTER 2024-06-22 05:40 | Emergency (ER) | payer MEDICARE ==
[~2024-06-22] VITALS: Ht 157.5 cm; Wt 79.4 kg
[2024-06-22 05:42] VITALS: TEMP 97.5
[2024-06-22 06:27] VITALS: PULSE 78; RESP 20
[2024-06-22 06:37] VITALS: BP 167/107; PULSE 74; RESP 17; TEMP 97.7; O2SAT 96
[2024-06-22] MEDS ORDERED: PANTOPRAZOLE SO40 MG PO (06:41)
== END 2024-06-22 06:47 | disposition home or self-care (01) ==
LOC: ER 06:15
DX: R05.9 Cough, unspecified (principal); K21.9 Gastro-esophageal reflux disease without esophagitis; J30.2 Other seasonal allergic rhinitis; R09.81 Nasal congestion; I10 Essential (primary) hypertension; I50.9 Heart failure, unspecified; E78.5 Hyperlipidemia, unspecified; E03.9 Hypothyroidism, unspecified; G47.30 Sleep apnea, unspecified; F41.9 Anxiety disorder, unspecified
CPT/HCPCS: 99283